=== PATIENT | male | born 1970 | race Caucasian/White ===

== ENCOUNTER 2022-02-18 12:54 | Inpatient (IN) | payer OTHER ==
[2022-02-18 14:49] VITALS: BMI 18.7
[2022-02-18] MEDS ORDERED: MAGNESIUM HYDROX 2400MG/30ML ORAL SUSPENSION 30 ML CUP PO PRN (16:21)
[2022-02-18] MEDS ORDERED: DICYCLOMINE HCL 10 MG CAPSULE PO PRN (16:21)
[2022-02-18] MEDS ORDERED: METHOCARBAMOL 500 MG TABLET PO PRN (16:21)
[2022-02-18] MEDS ORDERED: MAG HYDROX/AL HYDROX/SIMETH 30 ML UNIT-DOSE CUP PO PRN (16:21)
[2022-02-18] MEDS ORDERED: BENZOCAINE/MENTHOL (CHLORASEPTIC ) LOZENGE MM PRN (16:21)
[2022-02-18] MEDS ORDERED: LOPERAMIDE HCL 2 MG CAPSULE PO PRN (16:21)
[2022-02-18] MEDS ORDERED: ACETAMINOPHEN 325 MG TABLET (FP) PO PRN ×2 (16:21)
[2022-02-18] MEDS ORDERED: MAGNESIUM CITRATE 300 ML BOTTLE PO PRN (16:21)
[2022-02-18] MEDS ORDERED: NICOTINE 10 MG CARTRIDGE (INHALER) IH PRN (16:21)
[2022-02-18] MEDS ORDERED: IBUPROFEN 400 MG TABLET (FP) PO PRN (16:21)
[2022-02-18] MEDS ORDERED: BISMUTH SUBSALICYLATE 524 MG/30 ML PO PRN (16:21)
[2022-02-18] MEDS ORDERED: ONDANSETRON *ODT* 4 MG TABLET SL PRN (16:21)
[2022-02-18] MEDS: hydrOXYzine PAMOATE 25 MG CAPSULE (FP) PO SCH ×2 (18:24→23:26)
[2022-02-18] MEDS: PRENATAL VITAMINS W/ FOLIC ACID TABLET (FP) PO SCH (18:24)
[2022-02-18] MEDS ORDERED: MELATONIN 5 MG TABLETS PO SCH (22:00)
[2022-02-18] MEDS ORDERED: THIAMINE HCL 100 MG TABLET (FP) PO SCH (22:00)
[2022-02-18] MEDS ORDERED: methaDONE HCL 40 MG DISPERSABLE TABLET PO ONE (23:15)
[2022-02-19] MEDS: hydrOXYzine PAMOATE 25 MG CAPSULE (FP) PO SCH ×2 (07:28→10:58)
[2022-02-19 09:15] VITALS: BP 111/64; PULSE 90; TEMP 96.9
[2022-02-19 10:40] LABS: HEMATOCRIT 40.1 % (35.4-49); MCH 30.5 pg (25.7-33.7); MCHC 32.4 g/dl (32.0-35.9); MEAN CELL VOLUME 94.2 fl (80-96); MEAN PLT VOLUME 7.9 fl (7.5-11.1); PLATELET COUNT 232 10^3/uL (134-434); RBC 4.25 M/mm3 (4.00-5.60); RDW 13.6 % (11.9-15.9); WHITE BLOOD COUNT 5.1 K/mm3 (4.0-10.0)
[2022-02-19] MEDS: PRENATAL VITAMINS W/ FOLIC ACID TABLET (FP) PO SCH (10:58)
[2022-02-19 11:08] LABS: CALCIUM 9.2 mg/dL (8.5-10.1)
[2022-02-19 11:09] LABS: ALBUMIN 3.5 g/dl (3.4-5.0); BLOOD UREA NITROGEN 19.9 mg/dL (7-18)
[2022-02-19 11:14] LABS: BILIRUBIN,TOTAL 0.4 mg/dL (0.2-1); TOT PROT 7.3 g/dl (6.4-8.2)
[2022-02-19 11:34] LABS: CREATININE 0.6 mg/dL (0.55-1.3)
[2022-02-19 12:41] LABS: HIV INTERPRETATION NEGATIVE (NEGATIVE)
== END 2022-02-19 09:27 | disposition home or self-care (01) | DRG 773 ==
LOC: YASAS 12:54 → Y3N 16:55 → UNDOADMIN 16:55 → UNDODISIN 02-19 09:27
PROVIDERS: ADMIT Allergy & Immunology; ATTEND Allergy & Immunology
PROC: HZ2ZZZZ Detoxification Services for Substance Abuse Treatment (ICD-10-PCS; principal; 2022-02-18)
DX: F11.23 Opioid dependence with withdrawal (principal); F10.20 Alcohol dependence, uncomplicated; F14.20 Cocaine dependence, uncomplicated; F17.210 Nicotine dependence, cigarettes, uncomplicated; I10 Essential (primary) hypertension
CPT/HCPCS: 36415; 80053; 85027; 86780; 87389; 93005; 93010

== ENCOUNTER 2022-09-05 15:07 | Inpatient (IN) | payer OTHER ==
[2022-09-05 17:05] VITALS: BMI 19.1
[2022-09-05] MEDS ORDERED: NICOTINE POLACRILEX 2 MG GUM BC PRN (19:03)
[2022-09-05] MEDS ORDERED: MAGNESIUM CITRATE 300 ML BOTTLE PO PRN (19:03)
[2022-09-05] MEDS ORDERED: MAG HYDROX/AL HYDROX/SIMETH 30 ML UNIT-DOSE CUP PO PRN (19:03)
[2022-09-05] MEDS ORDERED: MAGNESIUM HYDROX 2400MG/30ML ORAL SUSPENSION 30 ML CUP PO PRN (19:03)
[2022-09-05] MEDS ORDERED: LOPERAMIDE HCL 2 MG CAPSULE PO PRN (19:03)
[2022-09-05] MEDS ORDERED: guaiFENesin 200 MG/10 ML 10 ML UNIT-DOSE CUPS PO PRN (19:03)
[2022-09-05] MEDS ORDERED: P-EPHED 60MG/TRIPROLIDI 2.5MG TABLET PO PRN (19:03)
[2022-09-05] MEDS: MELATONIN 5 MG TABLETS PO SCH (23:56)
[2022-09-05] MEDS: THIAMINE HCL 100 MG TABLET (FP) PO SCH (23:56)
[2022-09-05] MEDS: SULFAMETHOXAZOLE/TRIMETHOPRIM 800MG/160MG D.S. TABLET PO SCH (23:57)
[2022-09-05] MEDS: BACITRACIN 15 GM TUBE TOPICAL OINTMENT TP SCH (23:59)
[2022-09-06] MEDS ORDERED: TUBERCULIN PPD 5 TU/0.1ML VIAL ID ONE (00:03)
[2022-09-06] MEDS ORDERED: methaDONE HCL 10 MG TABLET PO SCH (08:15)
[2022-09-06] MEDS: PRENATAL VITAMINS W/ FOLIC ACID TABLET (FP) PO SCH (09:14)
[2022-09-06] MEDS: methaDONE 40 MG, methaDONE 30 MG PO SCH (09:14)
[2022-09-06] MEDS: BACITRACIN 15 GM TUBE TOPICAL OINTMENT TP SCH ×2 (09:15→21:37)
[2022-09-06] MEDS: SULFAMETHOXAZOLE/TRIMETHOPRIM 800MG/160MG D.S. TABLET PO SCH ×2 (09:17→21:37)
[2022-09-06 13:44] LABS: HEMATOCRIT 39.8 % (35.4-49); HEMOGLOBIN 13.1 GM/dL (11.7-16.9); MCH 30.9 pg (25.7-33.7); MCHC 32.8 g/dl (32.0-35.9); MEAN CELL VOLUME 94.1 fl (80-96); MEAN PLT VOLUME 7.6 fl (7.5-11.1); PLATELET COUNT 225 10^3/uL (134-434); RBC 4.23 M/mm3 (4.00-5.60); RDW 13.5 % (11.9-15.9); WHITE BLOOD COUNT 4.5 K/mm3 (4.0-10.0)
[2022-09-06 13:46] LABS: URINE APPEARANCE CLOUDY; URINE BILIRUBIN NEGATIVE (NEGATIVE); URINE COLOR YELLOW; URINE GLUCOSE (UA) NEGATIVE (NEGATIVE); URINE KETONE NEGATIVE (NEGATIVE); URINE LEUK ESTERASE NEGATIVE (NEGATIVE); URINE NITRITE NEGATIVE (NEGATIVE); URINE PROTEIN NEGATIVE (NEGATIVE); URINE UROBILINOGEN 0.2 mg/dL (0.2-1.0)
[2022-09-06 14:06] LABS: ALBUMIN 3.5 g/dl (3.4-5.0)
[2022-09-06 14:07] LABS: BLOOD UREA NITROGEN 20.6 mg/dL (7-18)
[2022-09-06 14:10] LABS: CREATININE 0.6 mg/dL (0.55-1.3)
[2022-09-06 14:12] LABS: BILIRUBIN,TOTAL 0.3 mg/dL (0.2-1); TOT PROT 7.2 g/dl (6.4-8.2)
[2022-09-06 16:04] LABS: SYPHILIS W/ RPR CONF NON-REACTIVE (NONREACTIVE)
[2022-09-06] MEDS: IBUPROFEN 400 MG TABLET (FP) PO PRN (16:32)
[2022-09-06] MEDS: NICOTINE 10 MG CARTRIDGE (INHALER) IH PRN (19:18)
[2022-09-06] MEDS: THIAMINE HCL 100 MG TABLET (FP) PO SCH (21:37)
[2022-09-06] MEDS: MELATONIN 5 MG TABLETS PO SCH (21:37)
[2022-09-07] MEDS: IBUPROFEN 400 MG TABLET (FP) PO PRN (06:04)
[2022-09-07] MEDS: methaDONE 40 MG, methaDONE 30 MG PO SCH (06:06)
[2022-09-07] MEDS: PRENATAL VITAMINS W/ FOLIC ACID TABLET (FP) PO SCH (10:30)
[2022-09-07] MEDS: BACITRACIN 15 GM TUBE TOPICAL OINTMENT TP SCH ×2 (10:30→21:06)
[2022-09-07] MEDS: SULFAMETHOXAZOLE/TRIMETHOPRIM 800MG/160MG D.S. TABLET PO SCH ×2 (10:31→21:06)
[2022-09-07] MEDS: ACETAMINOPHEN 325 MG TABLET (FP) PO PRN (10:32)
[2022-09-07] MEDS: THIAMINE HCL 100 MG TABLET (FP) PO SCH (21:06)
[2022-09-07] MEDS: MELATONIN 5 MG TABLETS PO SCH (21:06)
[2022-09-07] MEDS: LIDOCAINE PATCH REMOVAL MC SCH (21:07)
[2022-09-08] MEDS: methaDONE 40 MG, methaDONE 30 MG PO SCH (05:53)
[2022-09-08] MEDS: IBUPROFEN 400 MG TABLET (FP) PO PRN (05:56)
[2022-09-08] MEDS: NICOTINE 10 MG CARTRIDGE (INHALER) IH PRN (06:55)
[2022-09-08] MEDS: ACETAMINOPHEN 325 MG TABLET (FP) PO PRN (08:37)
[2022-09-08] MEDS: BACITRACIN 15 GM TUBE TOPICAL OINTMENT TP SCH ×2 (09:51→21:32)
[2022-09-08] MEDS: PRENATAL VITAMINS W/ FOLIC ACID TABLET (FP) PO SCH (09:51)
[2022-09-08] MEDS: SULFAMETHOXAZOLE/TRIMETHOPRIM 800MG/160MG D.S. TABLET PO SCH ×2 (09:51→21:32)
[2022-09-08] MEDS: LIDOCAINE 5% TOPICAL PATCH TP SCH (09:52)
[2022-09-08] MEDS: THIAMINE HCL 100 MG TABLET (FP) PO SCH (21:31)
[2022-09-08] MEDS: MELATONIN 5 MG TABLETS PO SCH (21:31)
[2022-09-08] MEDS: LIDOCAINE PATCH REMOVAL MC SCH (21:32)
[2022-09-09] MEDS: methaDONE 40 MG, methaDONE 30 MG PO SCH (06:06)
[2022-09-09] MEDS ORDERED: hydrOXYzine PAMOATE 25 MG CAPSULE (FP) PO PRN (08:21)
[2022-09-09] MEDS: PRENATAL VITAMINS W/ FOLIC ACID TABLET (FP) PO SCH (09:08)
[2022-09-09] MEDS: BACITRACIN 15 GM TUBE TOPICAL OINTMENT TP SCH ×2 (09:08→21:22)
[2022-09-09] MEDS: SULFAMETHOXAZOLE/TRIMETHOPRIM 800MG/160MG D.S. TABLET PO SCH ×2 (09:08→21:23)
[2022-09-09] MEDS: LIDOCAINE 5% TOPICAL PATCH TP SCH (09:11)
[2022-09-09] MEDS: FLUOCINONIDE 0.05% TOP OINT (60 GM TUBE) TP SCH ×2 (09:21→21:23)
[2022-09-09] MEDS: IBUPROFEN 400 MG TABLET (FP) PO PRN (17:13)
[2022-09-09] MEDS: MELATONIN 5 MG TABLETS PO SCH (21:22)
[2022-09-09] MEDS: THIAMINE HCL 100 MG TABLET (FP) PO SCH (21:22)
[2022-09-09] MEDS: LIDOCAINE PATCH REMOVAL MC SCH (21:23)
[2022-09-10] MEDS: methaDONE 40 MG, methaDONE 30 MG PO SCH (06:30)
[2022-09-10] MEDS: PRENATAL VITAMINS W/ FOLIC ACID TABLET (FP) PO SCH (09:44)
[2022-09-10] MEDS: SULFAMETHOXAZOLE/TRIMETHOPRIM 800MG/160MG D.S. TABLET PO SCH ×2 (09:44→21:31)
[2022-09-10] MEDS: BACITRACIN 15 GM TUBE TOPICAL OINTMENT TP SCH ×2 (09:45→21:31)
[2022-09-10] MEDS: LIDOCAINE 5% TOPICAL PATCH TP SCH (09:45)
[2022-09-10] MEDS: FLUOCINONIDE 0.05% TOP OINT (60 GM TUBE) TP SCH ×2 (09:47→21:32)
[2022-09-10] MEDS: MELATONIN 5 MG TABLETS PO SCH (21:31)
[2022-09-10] MEDS: THIAMINE HCL 100 MG TABLET (FP) PO SCH (21:31)
[2022-09-10] MEDS: LIDOCAINE PATCH REMOVAL MC SCH (21:32)
[2022-09-11] MEDS: methaDONE 40 MG, methaDONE 30 MG PO SCH (05:54)
[2022-09-11] MEDS: PRENATAL VITAMINS W/ FOLIC ACID TABLET (FP) PO SCH (09:48)
[2022-09-11] MEDS: SULFAMETHOXAZOLE/TRIMETHOPRIM 800MG/160MG D.S. TABLET PO SCH ×2 (09:48→21:26)
[2022-09-11] MEDS: LIDOCAINE 5% TOPICAL PATCH TP SCH (09:48)
[2022-09-11] MEDS: FLUOCINONIDE 0.05% TOP OINT (60 GM TUBE) TP SCH ×2 (09:49→21:26)
[2022-09-11] MEDS: BACITRACIN 15 GM TUBE TOPICAL OINTMENT TP SCH ×2 (09:50→21:27)
[2022-09-11] MEDS: MELATONIN 5 MG TABLETS PO SCH (21:26)
[2022-09-11] MEDS: QUEtiapine FUMARATE 50 MG TABLET PO SCH (21:26)
[2022-09-11] MEDS: THIAMINE HCL 100 MG TABLET (FP) PO SCH (21:26)
[2022-09-11] MEDS: LIDOCAINE PATCH REMOVAL MC SCH (21:27)
[2022-09-12] MEDS: methaDONE 40 MG, methaDONE 30 MG PO SCH (06:26)
[2022-09-12] MEDS: FLUOCINONIDE 0.05% TOP OINT (60 GM TUBE) TP SCH ×2 (10:05→21:46)
[2022-09-12] MEDS: BACITRACIN 15 GM TUBE TOPICAL OINTMENT TP SCH ×2 (10:06→21:45)
[2022-09-12] MEDS: SULFAMETHOXAZOLE/TRIMETHOPRIM 800MG/160MG D.S. TABLET PO SCH (10:07)
[2022-09-12] MEDS: PRENATAL VITAMINS W/ FOLIC ACID TABLET (FP) PO SCH (10:07)
[2022-09-12] MEDS: LIDOCAINE 5% TOPICAL PATCH TP SCH (10:07)
[2022-09-12] MEDS: QUEtiapine FUMARATE 50 MG TABLET PO SCH (21:45)
[2022-09-12] MEDS: THIAMINE HCL 100 MG TABLET (FP) PO SCH (21:45)
[2022-09-12] MEDS: MELATONIN 5 MG TABLETS PO SCH (21:45)
[2022-09-12] MEDS: LIDOCAINE PATCH REMOVAL MC SCH (21:46)
[2022-09-13] MEDS: methaDONE 40 MG, methaDONE 30 MG PO SCH (06:10)
[2022-09-13] MEDS: BACITRACIN 15 GM TUBE TOPICAL OINTMENT TP SCH (09:30)
[2022-09-13] MEDS: FLUOCINONIDE 0.05% TOP OINT (60 GM TUBE) TP SCH (09:30)
[2022-09-13] MEDS: PRENATAL VITAMINS W/ FOLIC ACID TABLET (FP) PO SCH (09:31)
[2022-09-13] MEDS: LIDOCAINE 5% TOPICAL PATCH TP SCH (09:31)
[2022-09-13 19:12] VITALS: BP 128/71; PULSE 80; RESP 19; TEMP 98
== END 2022-09-13 19:22 | disposition home or self-care (01) | DRG 772 ==
LOC: YASAS 15:07 → Y3W 22:56
PROVIDERS: ADMIT Allergy & Immunology; ATTEND Surgery
PROC: HZ42ZZZ Group Counseling for Substance Abuse Treatment, Cognitive-Behavioral (ICD-10-PCS; principal; 2022-09-05)
DX: F11.20 Opioid dependence, uncomplicated (principal); F14.20 Cocaine dependence, uncomplicated; F13.20 Sedative, hypnotic or anxiolytic dependence, uncomplicated; F12.20 Cannabis dependence, uncomplicated; F17.210 Nicotine dependence, cigarettes, uncomplicated; F19.282 Other psychoactive substance dependence with psychoactive substance-induced sleep disorder; F19.24 Other psychoactive substance dependence with psychoactive substance-induced mood disorder; F25.9 Schizoaffective disorder, unspecified; F41.9 Anxiety disorder, unspecified; M54.50 Low back pain, unspecified; G89.29 Other chronic pain; Z56.0 Unemployment, unspecified; Z59.00 Homelessness unspecified
CPT/HCPCS: 36415; 80053; 81003; 85027; 86780; 86803; 87522; C9803-CS; U0003; U0005

== ENCOUNTER 2024-02-15 14:55 | Inpatient (IN) | payer OTHER ==
[2024-02-15] MEDS ORDERED: NALOXONE HCL 0.4 MG/ML VIAL IM PRN (15:48)
[2024-02-15] MEDS ORDERED: LOPERAMIDE HCL 2 MG CAPSULE PO PRN (15:48)
[2024-02-15] MEDS ORDERED: MAG HYDROX/AL HYDROX/SIMETH 30 ML UNIT-DOSE CUP PO PRN (15:48)
[2024-02-15] MEDS ORDERED: BENZOCAINE/MENTHOL (CHLORASEPTIC ) LOZENGE MM PRN (15:48)
[2024-02-15] MEDS ORDERED: BENZONATATE 200 MG CAPSULE PO PRN (15:48)
[2024-02-15] MEDS ORDERED: MAGNESIUM HYDROX 2400MG/30ML ORAL SUSPENSION 30 ML CUP PO PRN (15:48)
[2024-02-15] MEDS ORDERED: IBUPROFEN 600 MG TABLET (FP) PO PRN (15:48)
[2024-02-15] MEDS ORDERED: DICYCLOMINE HCL 10 MG CAPSULE PO PRN (15:48)
[2024-02-15] MEDS ORDERED: BISMUTH SUBSALICYLATE 524 MG/30 ML PO PRN (15:48)
[2024-02-15] MEDS ORDERED: ONDANSETRON *ODT* 4 MG TABLET SL PRN (15:48)
[2024-02-15] MEDS ORDERED: ACETAMINOPHEN 325 MG TABLET (FP) PO PRN (15:48)
[2024-02-15] MEDS ORDERED: LORazepam 1 MG TABLET PO PRN (15:48)
[2024-02-15] MEDS ORDERED: NALOXONE HCL (KLOXXADO) 8 MG SPRAY NS PRN (15:48)
[2024-02-15] MEDS ORDERED: POLYETHYLENE GLYCOL (HEALTHYLAX) 3350 17 GM PACKET PO PRN (15:48)
[2024-02-15] MEDS ORDERED: hydrOXYzine PAMOATE 25 MG CAPSULE (FP) PO PRN (15:48)
[2024-02-15] MEDS ORDERED: guaiFENesin 600 MG TABLET.ER (FP) PO PRN (15:48)
[2024-02-15] MEDS ORDERED: IBUPROFEN 400 MG TABLET (FP) PO PRN (15:48)
[2024-02-15] MEDS ORDERED: METHOCARBAMOL 500 MG TABLET PO PRN (15:48)
[2024-02-15 15:49] VITALS: BMI 19.8
[2024-02-15] MEDS: PRENATAL VITAMINS W/ FOLIC ACID TABLET (FP) PO SCH (17:27)
[2024-02-15] MEDS: NICOTINE 21 MG/24 HOURS TOPICAL PATCH TD SCH (17:27)
[2024-02-15] MEDS: MELATONIN 5 MG TABLETS PO SCH (22:27)
[2024-02-15] MEDS: THIAMINE 100 MG TABLET PO SCH (22:27)
[2024-02-15] MEDS: LORazepam 2 MG TABLET PO SCH (22:28)
[2024-02-16 14:25] LABS: HEMATOCRIT 38.4 % (35.4-49); MCH 31.7 pg (25.7-33.7); MCHC 33.9 g/dl (32.0-35.9); MEAN CELL VOLUME 93.6 fl (80-96); MEAN PLT VOLUME 7.7 fl (7.5-11.1); PLATELET COUNT 212 10^3/uL (134-434); RDW 13.4 % (11.9-15.9); WHITE BLOOD COUNT 3.4 K/mm3 (4.0-10.0)
[2024-02-16 14:33] LABS: CHLORIDE 106 mmol/L (98-107); POTASSIUM 4.3 mmol/L (3.5-5.1)
[2024-02-16 14:36] LABS: ALBUMIN 3.2 g/dl (3.4-5.0); BLOOD UREA NITROGEN 17.3 mg/dL (7-18); CALCIUM 8.7 mg/dL (8.5-10.1); CO2 29 mmol/L (21-32); GLUCOSE,RANDOM 92 mg/dL (74-106)
[2024-02-16 14:39] LABS: CREATININE 0.5 mg/dL (0.55-1.3); SGOT/AST 22 U/L (15-37); SGPT/ALT 19 U/L (13-61)
[2024-02-16 14:41] LABS: BILIRUBIN,TOTAL 0.3 mg/dL (0.2-1); TOT PROT 6.6 g/dl (6.4-8.2)
[2024-02-16 14:42] LABS: ALK PHOS 88 U/L (45-117)
[2024-02-16 14:55] LABS: ANION GAP 3 mmol/L (4-13); SODIUM 139 mmol/L (136-145)
[2024-02-16 15:29] LABS: HIV INTERPRETATION NEGATIVE (NEGATIVE)
[2024-02-16] MEDS: methaDONE HCL 10 MG TABLET PO SCH (16:47)
[2024-02-16] MEDS: methaDONE 40 MG, methaDONE 20 MG PO SCH (17:29)
[2024-02-16] MEDS: LACTULOSE 20 GM/30 ML UDC (FOR ORAL USE ONLY) PO SCH (17:30)
[2024-02-17] MEDS: LORazepam 1 MG TABLET PO SCH (05:50)
[2024-02-18] MEDS ORDERED: LORazepam 0.5 MG TABLET PO PRN
[2024-02-18] MEDS: LORazepam 0.5 MG TABLET PO SCH (05:41)
[2024-02-19] MEDS: LORazepam 0.5 MG TABLET PO ONE (06:00)
[2024-02-20 06:23] VITALS: RESP 16
[2024-02-20 09:23] VITALS: BP 110/60; PULSE 91; TEMP 98.2
== END 2024-02-20 10:27 | disposition home or self-care (01) | DRG 773 ==
LOC: YASAS 14:55 → Y3N 16:08
PROVIDERS: ADMIT Allergy & Immunology; ATTEND Surgery
PROC: HZ2ZZZZ Detoxification Services for Substance Abuse Treatment (ICD-10-PCS; principal; 2024-02-15)
DX: F10.230 Alcohol dependence with withdrawal, uncomplicated (principal); F11.20 Opioid dependence, uncomplicated; F14.20 Cocaine dependence, uncomplicated; F17.210 Nicotine dependence, cigarettes, uncomplicated; F25.9 Schizoaffective disorder, unspecified; F19.24 Other psychoactive substance dependence with psychoactive substance-induced mood disorder; I10 Essential (primary) hypertension; Z91.199 Patient's noncompliance with other medical treatment and regimen due to unspecified reason
CPT/HCPCS: 36415; 80053; 80305; 80307; 82140; 85027; 86780; 86803; 87389; 87522; 93005; 93010